=== PATIENT | female | born 1985 ===

== ENCOUNTER 2018-12-14 09:15 | Day surgery (SDC) | payer OTHER ==
[2018-12-14] MEDS ORDERED: DOXYCYCLINE HY100 M2 PO (14:30)
[2018-12-14] MEDS ORDERED: Tylenol #3 PO (14:30)
== END 2018-12-14 20:35 | disposition home or self-care (01) ==
LOC: CIR.AMB 09:15
DX: N84.0 Polyp of corpus uteri (principal); D25.0 Submucous leiomyoma of uterus